=== PATIENT | female | born 1990 | race Caucasian/White ===

== ENCOUNTER 2016-07-25 01:09 | Emergency (ER) | payer BC ==
[2016-07-25 01:15] VITALS: TEMP 97
[2016-07-25] MEDS ORDERED: IBUPROFEN 600 MG TAB PO STA (01:20)
--- NOTE | 2016-07-25 01:50 | XR ---
EXAM: XR RIGHT FOOT, 3 views INDICATION: 25-year-old female with foot pain. COMPARISON: None. FINDINGS: 3 views of the right foot show marked soft tissue swelling over the dorsal and medial midfoot. There is lateral shift of the second through fifth metatarsal heads with respect to the tarsal bones. There is an acute, comminuted fracture of the base of the fourth metatarsal with intra-articular extension. There is irregularity at the second and third metatarsal bases as seen on the oblique images which may relate to nondisplaced fractures, as well. There is widening of the interval between the first and second metatarsal. There is a small type I os navicularis present. Bone mineralization is within normal limits. Remaining osseous structures appear intact. Joint spaces are otherwise maintained. IMPRESSION: 1. Acute, comminuted fracture of the base of the fourth metatarsal with intra-articular extension and possible fractures at the second and third metatarsal bases. 2. Lateral shift of the second through fifth metatarsals relative to the tarsal bones worrisome for a Lisfranc fracture/dislocation injury. Consider noncontrast CT of the foot to further evaluate. 3. Marked soft tissue swelling of the dorsal and medial midfoot.
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
--- NOTE | 2016-07-25 02:35 | CT ---
Exam: CT RIGHT FOOT Without Contrast INDICATION: 25-year-old female with foot pain. COMPARISON: Right foot radiographs 07/25/2016. TECHNIQUE: Multiple axial CT images of the right. Contrast material reformatted coronal and sagittal images are submitted. FINDINGS: There is evidence of a homolateral Lisfranc injury with lateral shift of the first through fifth metatarsals relative to the tarsal bones up to 5 mm. There is associated fracture of the proximal medial base of the second metatarsal with intra-articular extension. There is avulsion fracture of the superomedial distal aspect of the medial cuneiform in the region of the Lisfranc ligament. There is a nondisplaced fracture of the lateral aspect of the middle cuneiform with intra-articular extension. There is a comminuted, minimally displaced fracture involving the lateral cuneiform with intra-articular extension. The third metatarsal is intact. There is an oblique fracture involving the base of the fourth metatarsal with intra-articular extension, as well. Small capsular avulsion of the lateral aspect of the cuboid versus tiny os peroneum. Type I os navicularis is present. Small os trigonum is present. Marked soft tissue swelling dorsal and medial aspect of the mid and forefoot. IMPRESSION: Homolateral Lisfranc fracture dislocation of the tarsometatarsal joints, as above. DOSE:: CTDI is 10.5 mGy and DLP is 321.5 mGy-cm
[2016-07-25 03:16] VITALS: BP 110/68; PULSE 112; RESP 18
== END 2016-07-25 03:17 | disposition home or self-care (01) ==
LOC: EC 01:09
DX: S92.341A Displaced fracture of fourth metatarsal bone, right foot, initial encounter for closed fracture (principal); Y92.89 Other specified places as the place of occurrence of the external cause; S92.321A Displaced fracture of second metatarsal bone, right foot, initial encounter for closed fracture; S92.241A Displaced fracture of medial cuneiform of right foot, initial encounter for closed fracture; S92.224A Nondisplaced fracture of lateral cuneiform of right foot, initial encounter for closed fracture; F17.200 Nicotine dependence, unspecified, uncomplicated; Z88.5 Allergy status to narcotic agent; Z88.2 Allergy status to sulfonamides; W50.0XXA Accidental hit or strike by another person, initial encounter
CPT/HCPCS: 29515; 99284

== ENCOUNTER 2016-08-07 10:58 | Inpatient (IN) | payer SELFPAY ==
[2016-08-04 10:59] VITALS: BMI 32.4
[~2016-08-07 10:58] MED LIST: DEXAMETHASONE SOD PHOSPHATE 10 MG/ML 1 ML VIAL IV ONE; MIDAZOLAM 2 MG/2 ML VIAL IV PRN; ONDANSETRON 4 MG/2 ML VIAL IVP ONE; SCOPOLAMINE 1.5MG/72HR PATCH TRANSDERM ONE; ceFAZolin 2 GM in SODIUM CHLORIDE 0.9% 100 ML IVPB ONE
[2016-08-07] MEDS ORDERED: LIDOCAINE 1% 20 ML VIAL (10MG/ML) FOR IV START INTRADERMA ONE (11:37)
[2016-08-07] MEDS: LACTATED RINGERS 1,000 ML IV SCH ×2 (11:37→20:07)
[2016-08-07] MEDS ORDERED: MIDAZOLAM 2 MG/2 ML VIAL ONE (13:00)
[2016-08-07] MEDS ORDERED: HYDROmorphone (PF) 1 MG/ML ONE (13:00)
[2016-08-07] MEDS ORDERED: fentaNYL (PF) 50 MCG/ML 2 ML AMP ONE (13:00)
[2016-08-07] MEDS ORDERED: PROPOFOL 10 MG/ML 20 ML VIAL IV ONE (13:00)
[2016-08-07] MEDS ORDERED: SUCCINYLCHOLINE CHLORIDE 100 MG/5 ML SYR IV ONE (13:00)
[2016-08-07] MEDS ORDERED: LIDOCAINE 1% INJ 10MG/ML (20 ML MDV) ONE (13:00)
[2016-08-07] MEDS ORDERED: LACTATED RINGERS 1,000 ML IV ONE ×2 (13:30→16:29)
[2016-08-07] MEDS ORDERED: ceFAZolin 1,000 MG in SODIUM CHLORIDE 0.9% 1,000 ML IRRIGATION ONE (13:47)
--- NOTE | 2016-08-07 16:30 | FL ---
FLUOROSCOPY 2 minutes and 50 seconds of fluoroscopy time were utilized during internal fixation of the right ankl e. 11 images document the procedure.
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
[2016-08-07] MEDS ORDERED: HYDROcodone/APAP 5-325MG 1 EACH TAB PO PRN (17:18)
[2016-08-07] MEDS ORDERED: ONDANSETRON 4 MG/2 ML VIAL IVP PRN (17:18)
[2016-08-07] MEDS ORDERED: HYDROmorphone 1 MG/ML 1 ML SYRINGE IVP PRN (17:18)
[2016-08-07] MEDS ORDERED: MAGNESIUM HYDROXIDE 2,400 MG/10 ML CUP PO PRN (17:18)
[2016-08-07] MEDS ORDERED: NALOXONE 0.4 MG/ML 1 ML VIAL IV PRN (17:18)
[2016-08-07] MEDS: HYDROmorphone 1 MG/ML 1 ML SYRINGE IVP PRN ×4 (17:45→22:02)
[2016-08-07] MEDS ORDERED: MIDAZOLAM 2 MG/2 ML VIAL IVP ONE ×2 (18:30→18:35)
[2016-08-07] MEDS ORDERED: MEPERIDINE 50 MG/ML SYRINGE IVP ONE (18:45)
[2016-08-07] MEDS: SENNOSIDES-DOCUSATE SODIUM 1 EACH TAB PO SCH (20:00)
[2016-08-07] MEDS: ceFAZolin 2 GM in SODIUM CHLORIDE 0.9% 100 ML IVPB SCH (20:06)
[2016-08-07] MEDS ORDERED: HYDROcodone/APAP 7.5-325MG 1 EACH TAB PO PRN (20:13)
--- NOTE | 2016-08-07 20:45 | P.ONQ ---
Anesthesiology Proc Note - PNB - Peripheral Nerve Block Performed Right Popliteal Single Time Out Performed: Yes Procedure Start Time: 18:00 Procedure Stop Time: 18:10 Indication: Acute Post-Operative Pain, Analgesia, Requested by physician Sedation Type: Awake Preparation: Sterile Prep Position: Supine Needle Size: 100mm (4") Needle Gauge: 20 Technique: Ultrasound Injectate: 0.5% Ropivacaine (see comment for volume) (15 ml ropivacaine 2 % plus lidocaine 2% with epi 1/200k 15 ml) Adjunct: Epinephrine (see comment for dilution ratio) Blood Aspirated: No Resistance on Injection: Normal Events: Uneventful and Well Tolerated
[2016-08-07] MEDS: DIAZEPAM 5 MG TAB PO PRN (22:01)
[2016-08-08] MEDS: HYDROmorphone 1 MG/ML 1 ML SYRINGE IVP PRN ×5 (00:17→14:21)
[2016-08-08] MEDS: HYDROcodone/APAP 10-325MG 1 EACH TAB PO PRN ×2 (01:31→06:35)
[2016-08-08] MEDS: hydrOXYzine PAMOATE 25 MG CAP PO PRN ×3 (01:31→21:41)
[2016-08-08] MEDS: ONDANSETRON 4 MG/2 ML VIAL IVP PRN ×3 (01:41→19:45)
[2016-08-08] MEDS: ceFAZolin 2 GM in SODIUM CHLORIDE 0.9% 100 ML IVPB SCH (04:17)
[2016-08-08] MEDS: ENOXAPARIN 40 MG/0.4 ML SYRINGE SQ SCH (07:07)
[2016-08-08] MEDS ORDERED: oxyCODONE-APAP 5-325MG 1 EACH TAB PO PRN (08:04)
[2016-08-08] MEDS ORDERED: KETOROLAC 30 MG/ML 1 ML VIAL IVP STA (08:05)
--- NOTE | 2016-08-08 10:39 | P.PN ---
Subjective The patient was seen at bedside this morning his complaining of severe pain in her right foot. She says she had a block after surgery which does not seem to be providing much relief. She has no other complaints other than right foot pain. Objective - Vital Signs Vital signs: Vital Signs Temp 98.1 F 08/08/16 02:13 Pulse 99 08/08/16 02:13 Resp 16 08/08/16 02:13 BP 126/68 08/08/16 02:13 Pulse Ox 93 L 08/08/16 07:38 Intake & Output 08/07/16 08/08/16 08/08/16 18:59 06:59 18:59 Intake Total 2201 1090 480 Output Total 450 Balance 1751 1090 480 Weight 88.451 kg Intake: IV 2201 500 Oral 590 480 Output: Urine 400 Estimated Blood Loss 50 Other: Voiding Method Bedside Commode # Voids 1 - Exam On examination the patient is in moderate distress secondary to pain. A focused exam of the right leg shows a clean-appearing bulky Pérez splint over her right lower leg. There is no saturated blood or drainage. The tips of her toes are warm and well perfused. Sensation is intact to light touch in her toes. She has no pain with passive range motion of her toes. Assessment and Plan (1) Lisfranc fracture Status: Acute Plan: Postop day #1 status post ORIF right Lisfranc injury 1. Strict nonweightbearing left lower extremity. Ice and elevate. 2. DVT prophylaxis with Lovenox while in-house discharge home on aspirin. 3. Added Percocet and a single dose of Toradol to help get her pain under better control. 4. Patient can discharge home when she is comfortable. If she is comfortable later this afternoon she can go home and if she needs to stay until tomorrow that is fine. Anticipate due to her pain she will likely need to stay until tomorrow.
[2016-08-08] MEDS ORDERED: HYDROmorphone 1 MG/ML 1 ML SYRINGE IVP PRN (10:50)
[2016-08-08] MEDS: DIAZEPAM 5 MG TAB PO PRN (15:21)
[2016-08-08] MEDS: MULTIVITAMINS, THERA 1 EACH TAB PO SCH (15:21)
[2016-08-08] MEDS ORDERED: NALOXONE 0.4 MG/ML 1 ML VIAL IV PRN (16:27)
[2016-08-08] MEDS ORDERED: HYDROmorphone PCA 5 MG/25 ML SYRINGE IV ONE (16:36)
[2016-08-08] MEDS: HYDROmorphone PCA 5 MG/25 ML SYRINGE IV PRN ×3 (17:42→21:55)
[2016-08-08] MEDS: KETOROLAC 30 MG/ML 1 ML VIAL IVP SCH (18:47)
[2016-08-08] MEDS: SENNOSIDES-DOCUSATE SODIUM 1 EACH TAB PO SCH (21:40)
[2016-08-08] MEDS: oxyCODONE-APAP 5-325MG 1 EACH TAB PO PRN (21:41)
[2016-08-09] MEDS: ONDANSETRON 4 MG/2 ML VIAL IVP PRN ×3 (01:21→21:09)
[2016-08-09] MEDS: oxyCODONE-APAP 5-325MG 1 EACH TAB PO PRN ×2 (01:21→06:57)
[2016-08-09] MEDS: KETOROLAC 30 MG/ML 1 ML VIAL IVP SCH ×3 (01:25→17:51)
[2016-08-09] MEDS: HYDROmorphone PCA 5 MG/25 ML SYRINGE IV PRN ×6 (02:21→22:59)
[2016-08-09] MEDS: DIAZEPAM 5 MG TAB PO PRN ×2 (02:25→17:51)
[2016-08-09] MEDS: ENOXAPARIN 40 MG/0.4 ML SYRINGE SQ SCH (06:57)
[2016-08-09] MEDS ORDERED: LIDOCAINE 2%-EPI 1:100,000 20 ML VIAL ONE (10:40)
[2016-08-09] MEDS ORDERED: ROPIVACAINE 5 MG/ML 30 ML VIAL ONE (10:40)
[2016-08-09] MEDS ORDERED: LIDOCAINE 1% INJ 10MG/ML (20 ML MDV) IM ONE (10:44)
[2016-08-09] MEDS ORDERED: BUPIVACAIN-EPI 0.25%-1:200,000 30 ML VIAL INTRAARTIC ONE (10:44)
--- NOTE | 2016-08-09 11:27 | P.ONQ ---
Anesthesiology Proc Note - PNB - Peripheral Nerve Block Performed Right Popliteal Single Time Out Performed: Yes Procedure Start Time: 10:50 Procedure Stop Time: 11:00 Indication: Acute Post-Operative Pain, Dx/Pain Location Sedation Type: Awake Preparation: Sterile Prep Position: Supine Catheter Depth at Skin (cm): 3 Catheter: None Needle Types: Facet Needle Size: 100mm (4") Needle Gauge: 20 Technique: Ultrasound Injectate: Other (see comment) (lidocaine 1% 10 ml +Bupivacaine 0,25% 15 ml) Adjunct: Epinephrine (see comment for dilution ratio) Blood Aspirated: No Pain Paresthesia on Injection Noted: No Resistance on Injection: Normal Events: Uneventful and Well Tolerated
--- NOTE | 2016-08-09 11:31 | P.ONQ ---
Anesthesiology Proc Note - PNB - Peripheral Nerve Block Performed Right Adductor Canal Single Time Out Performed: Yes Procedure Start Time: 10:45 Procedure Stop Time: 10:50 Indication: Acute Post-Operative Pain Sedation Type: Awake Preparation: Sterile Prep Position: Supine Catheter: None Needle Types: Facet Needle Size: 100mm (4") Needle Gauge: 20 Technique: Ultrasound Injectate: Other (see comment) (Lidocaine 1% with epi 1/200k 5 ML + bupivacaine 0.25% with epi 1/200 k 15 mL)
--- NOTE | 2016-08-09 11:36 | P.PN ---
Subjective Patient continues to complain of severe and excruciating pain in her foot. Objective - Vital Signs Vital signs: Vital Signs Temp 99.2 F 08/09/16 11:23 Pulse 95 08/09/16 11:23 Resp 18 08/09/16 11:23 BP 119/75 08/09/16 11:23 Pulse Ox 97 08/09/16 11:23 Intake & Output 08/08/16 08/09/16 08/09/16 18:59 06:59 18:59 Intake Total 480 1420 Balance 480 1420 Intake: Oral 480 1420 Other: Voiding Method Bedside Commode Bedside Commode # Voids 1 - Exam On exam the patient has a clean-appearing bulky Pérez splint. The front of the splint was taken down to allow examination of the right foot. After the splint was taken down on examination of the foot there are healing dorsomedial and dorsolateral incisions. The flap of skin between the 2 incisions as well perfused with brisk capillary refill. There is no drainage or sign of infection. The calf is soft. There is mild swelling throughout the foot, but the foot is soft and compressible. There is no pain with passive range of motion of the toes. Sensation is intact to light touch at the tip of the toes. The toes are warm and well perfused with brisk capillary refill. Assessment and Plan (1) Lisfranc fracture Status: Acute Plan: Postoperative day #2 status post open reduction internal fixation of right Lisfranc fracture dislocation 1. Continue strict nonweightbearing and elevation of right leg 2. Leave splint open overnight. 3. Continue HOUSING ASSISTANT, Percocet, and Toradol 4. A repeat attempt at popliteal and abductor block was performed by anesthesia this morning to hopefully help get pain under control 5. We'll plan on discharge home tomorrow if pain is better controlled
[2016-08-09] MEDS: hydrOXYzine PAMOATE 25 MG CAP PO PRN (12:53)
[2016-08-09] MEDS: MULTIVITAMINS, THERA 1 EACH TAB PO SCH (12:57)
[2016-08-09] MEDS: oxyCODONE-APAP 10-325MG 1 EACH TAB PO PRN ×2 (15:21→21:09)
[2016-08-09] MEDS: SENNOSIDES-DOCUSATE SODIUM 1 EACH TAB PO SCH (21:09)
[2016-08-10] MEDS: oxyCODONE-APAP 10-325MG 1 EACH TAB PO PRN ×4 (01:11→16:10)
[2016-08-10] MEDS: KETOROLAC 30 MG/ML 1 ML VIAL IVP SCH ×2 (02:00→09:05)
[2016-08-10 02:22] VITALS: RESP 16
[2016-08-10] MEDS: ONDANSETRON 4 MG/2 ML VIAL IVP PRN ×2 (02:51→08:14)
[2016-08-10] MEDS: HYDROmorphone PCA 5 MG/25 ML SYRINGE IV PRN (03:59)
[2016-08-10] MEDS: ENOXAPARIN 40 MG/0.4 ML SYRINGE SQ SCH (07:39)
[2016-08-10] MEDS: MULTIVITAMINS, THERA 1 EACH TAB PO SCH (07:40)
[2016-08-10 08:10] LABS: Basophils % (A) 0 %; CH 30.7; CHCM 32.7; Eosinophils # (A) 0.1 k/uL (0-0.7); Eosinophils % (A) 1 %; HCT 34.9 % (34.0-46.0); HDW 2.49; HGB 11.4 gm/dL (11.4-16.0); Luc # (Auto) 0.21; Luc % (Auto) 3; Lymphocytes # (A) 2.2 k/uL (1.0-4.8); Lymphocytes % (A) 26 %; MCH 30.8 pg (25.0-35.0); MCHC 32.6 g/dL (31.0-37.0); MCV 94.3 fL (80.0-100.0); Mean Platelet Volume 6.4; Monocytes # (A) 0.4 k/uL (0-1.0); Monocytes % (A) 5 %; Neutrophils # (A) 5.4 k/uL (1.3-7.7); Neutrophils % (A) 65 %; RDW 12.5 % (11.5-15.5); WBC 8.2 k/uL (3.8-10.6)
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
--- NOTE | 2016-08-10 10:13 | XR ---
EXAMINATION TYPE: XR chest 1V portable DATE OF EXAM: 08/10/2016 9:49 AM CLINICAL HISTORY: Difficulty breathing progress study. Cough and fever per order. TECHNIQUE: Single AP portable upright view of the chest is obtained. COMPARISON: Chest x-ray from June 27, 2005 FINDINGS: Diminished inspiration is seen on current study. There is no focal air space opacity, pleur al effusion, or pneumothorax seen. The cardiac silhouette size is upper limits of normal. The osse ous structures are intact. IMPRESSION: No suspicious acute pulmonary process.
[2016-08-10] MEDS ORDERED: RX INFO: IV CONTRAST WAS GIVEN 1 EACH MISC MISCELLANE PRN (11:48)
[2016-08-10 16:40] VITALS: BP 111/71; PULSE 84; TEMP 97.1
--- NOTE | 2016-08-10 17:07 | P.PN ---
Subjective The patient is significantly improved this afternoon and the pain in her left foot is under much better control. This morning the patient had some chest discomfort and a headache which she attributes to being on narcotic pain medication. Internal medicine was consult did and requested a workup of her chest pain which the patient refused. At the time of my evaluation she denies chest pain or headache. She has no other complaints. Objective - Vital Signs Vital signs: Vital Signs Temp 97.1 F L 08/10/16 15:00 Pulse 84 08/10/16 15:00 Resp 16 08/10/16 15:00 BP 111/71 08/10/16 15:00 Pulse Ox 98 08/10/16 15:00 Intake & Output 08/09/16 08/10/16 08/10/16 18:59 06:59 18:59 Intake Total 120 810 Output Total 600 Balance 120 810 -600 Intake: Oral 120 810 Output: Urine 600 Other: Voiding Method Bedside Commode Bedside Commode # Voids 1 4 1 - Exam On exam the patient is in no apparent distress and is alert and oriented. On examination of the patient's right leg she has a open bulky Pérez type splint. The splint was completely taken down and the foot was inspected. There is diffuse swelling throughout the foot. There are healing incisions over the dorsomedial and dorsolateral midfoot. There is a K wire in the lateral aspect of her foot. The foot is warm and well perfused with brisk capillary refill. There is no pain with passive range motion of the toes. - Labs CBC & Chem 7: 08/10/16 07:25 Labs: Abnormal Lab Results - Last 24 Hours (Table) 08/10/16 Range/Units 07:25 RBC 3.70 L (3.80-5.40) m/uL Assessment and Plan (1) Lisfranc fracture Status: Acute Plan: Postoperative day #3 status post open reduction internal fixation of right Lisfranc injury 1. Continue strict nonweightbearing right lower extremity 2. Ice and elevate right leg 3. A new bulky Pérez type splint was applied 4. Patient will discharge home with Percocet 10/325 for pain. I would also like her to start Bactrim double strength twice a day due to her dressing think changed and exposed the hospital environment. The patient states that despite having a sulfa ALLERGY she has tolerated Bactrim in the past. 5. The patient currently has no complaint of chest pain or headache. 6. Patient is going to discharge home this afternoon
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
== END 2016-08-10 17:57 | disposition home or self-care (01) | DRG 505 ==
LOC: OR 10:58 → 3SUR 16:35 → OR 08-08 01:16 → 3SUR 08-08 01:16 → OBSVTOIN 08-09 14:31
PROVIDERS: ADMIT Hospitalist; ATTEND Hospitalist
PROC: 0QSN04Z Reposition Right Metatarsal with Internal Fixation Device, Open Approach (ICD-10-PCS; principal; 2016-08-09 10:56)
DX: S92.311A Displaced fracture of first metatarsal bone, right foot, initial encounter for closed fracture (principal); M54.2 Cervicalgia; Y04.2XXA Assault by strike against or bumped into by another person, initial encounter; S62.310A Displaced fracture of base of second metacarpal bone, right hand, initial encounter for closed fracture; Z72.0 Tobacco use; Z79.82 Long term (current) use of aspirin; Z79.899 Other long term (current) drug therapy; Z88.5 Allergy status to narcotic agent; Z88.2 Allergy status to sulfonamides; R50.9 Fever, unspecified
CPT/HCPCS: 64447; 71010; 85025; 87502; 94760; 96375; 96376

== ENCOUNTER → 2019-07-21 | Outpatient (CLI) | payer BC ==
--- NOTE | 2019-07-21 10:28 | US ---
EXAMINATION TYPE: US transvaginal DATE OF EXAM: 07/21/2019 COMPARISON: NONE CLINICAL HISTORY: N93.8. Irregular bleeding. IUD x 5 years. TECHNIQUE: Transvaginal (TV). Date of LMP: 06/28/2019 EXAM MEASUREMENTS: Uterus: 8.7 x 4.3 x 4.2 cm Endometrial Stripe: 0.6 cm Right Ovary: 2.8 x 2.1 x 2.0 cm Left Ovary: 2.7 x 2.0 x 1.5 cm 1. Uterus: Anteverted 2. Endometrium: wnl, IUD visualized 3. Right Ovary: follicles seen 4. Left Ovary: follicles seen 5. Bilateral Adnexa: wnl 6. Posterior cul-de-sac: no free fluid Cervix- IUD strings visualized IMPRESSION: Appropriately based central intrauterine device. Physiologic follicles of the ovaries. No endometrial thickening.
== END | disposition home or self-care (01) ==
LOC: RADUSWWP 09:49
PROVIDERS: ATTEND Obstetrics & Gynecology
DX: N93.8 Other specified abnormal uterine and vaginal bleeding (principal)
CPT/HCPCS: 76830

== ENCOUNTER 2021-05-05 11:14 | Emergency (ER) | payer SELFPAY ==
[2021-05-05 11:33] VITALS: BP 135/73; PULSE 84; RESP 18; TEMP 97.7
[2021-05-05] MEDS ORDERED: FAMOTIDINE 20 MG TAB PO STA (11:41)
[2021-05-05] MEDS ORDERED: DEXAMETHASONE SOD PHOSPHATE 10 MG/ML 1 ML VIAL IM STA (11:41)
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
== END 2021-05-05 12:14 | disposition home or self-care (01) ==
LOC: EC 11:14
DX: L50.9 Urticaria, unspecified (principal); Z88.5 Allergy status to narcotic agent; Z88.2 Allergy status to sulfonamides
CPT/HCPCS: 99283; 96372; J1100

== ENCOUNTER → 2023-12-31 | Outpatient (CLI) | payer BC | END | disposition home or self-care (01) | LOC: LABPRL 12:35 | PROVIDERS: ATTEND Obstetrics & Gynecology | DX: Z36.85 Encounter for antenatal screening for Streptococcus B (principal) | CPT/HCPCS: 87081 ==

== ENCOUNTER 2024-01-06 07:45 | Inpatient (IN) | payer BC ==
[2024-01-06] MEDS ORDERED: PHYTONADIONE 1 MG/0.5 ML SYRINGE ONE (08:46)
[2024-01-06] MEDS ORDERED: ERYTHROMYCIN 5 MG/GM OPHTH OINT 1 GM TUBE ONE (08:47)
[2024-01-06] MEDS ORDERED: CITRIC ACID-SODIUM CITRATE 15 ML CUP ONE (08:47)
[2024-01-06] MEDS ORDERED: PHENYLEPHRINE 10 MG/ML VIAL ONE (09:02)
[2024-01-06] MEDS ORDERED: DEXAMETHASONE SOD PHOSPHATE 4 MG/ML 1 ML VIAL ONE (09:02)
[2024-01-06] MEDS ORDERED: KETOROLAC 30 MG/ML 1 ML VIAL ONE (09:02)
[2024-01-06] MEDS ORDERED: ONDANSETRON 4 MG/2 ML VIAL ONE (09:02)
[2024-01-06] MEDS ORDERED: diphenhydrAMINE 50 MG/ML 1 ML VIAL ONE (09:02)
[2024-01-06] MEDS ORDERED: OXYTOCIN 30 UNITS/500 ML NS BAG IV ONE (09:02)
[2024-01-06] MEDS ORDERED: MORPHINE SULFATE (PF) 0.3 MG/0.3 ML SYR ONE (09:02)
[2024-01-06] MEDS ORDERED: NALBUPHINE 10 MG/ML (10 ML MDV) ONE (09:47)
[2024-01-06] MEDS ORDERED: ACETAMINOPHEN TAB 500 MG TAB ONE ×2 (15:01→20:14)
[2024-01-06] MEDS ORDERED: IBUPROFEN 600 MG TAB PO ONE (17:56)
[2024-01-06] MEDS ORDERED: SENNOSIDES-DOCUSATE SODIUM 1 EACH TAB PO ONE (20:13)
[2024-01-07] MEDS ORDERED: IBUPROFEN 600 MG TAB PO ONE ×4 (00:15→19:48)
[2024-01-07] MEDS ORDERED: ACETAMINOPHEN TAB 500 MG TAB ONE ×4 (03:22→16:32)
[2024-01-07] MEDS ORDERED: SENNOSIDES-DOCUSATE SODIUM 1 EACH TAB PO ONE ×2 (09:32→19:48)
[2024-01-07] MEDS ORDERED: SUCROSE 24% 2 ML AMP ONE (10:17)
[2024-01-08] MEDS ORDERED: ACETAMINOPHEN TAB 500 MG TAB ONE ×3 (00:07→11:40)
[2024-01-08] MEDS ORDERED: IBUPROFEN 600 MG TAB PO ONE ×2 (02:24→08:14)
[2024-01-08] MEDS ORDERED: SENNOSIDES-DOCUSATE SODIUM 1 EACH TAB PO ONE (08:13)
== END 2024-01-08 11:55 | disposition home or self-care (01) | DRG 787 ==
LOC: 4FBP 07:45
PROVIDERS: ADMIT Obstetrics & Gynecology; ATTEND Obstetrics & Gynecology
PROC: 3E0234Z Introduction of Serum, Toxoid and Vaccine into Muscle, Percutaneous Approach (ICD-10-PCS; 2024-01-06)
PROC: 10D00Z1 Extraction of Products of Conception, Low, Open Approach (ICD-10-PCS; principal; 2024-01-06 09:00)
DX: O34.211 Maternal care for low transverse scar from previous cesarean delivery (principal); O36.0930 Maternal care for other rhesus isoimmunization, third trimester, not applicable or unspecified; O26.893 Other specified pregnancy related conditions, third trimester; Z67.11 Type A blood, Rh negative; Z3A.36 36 weeks gestation of pregnancy; Z37.0 Single live birth; O99.334 Smoking (tobacco) complicating childbirth; Z88.5 Allergy status to narcotic agent; Z88.2 Allergy status to sulfonamides; Z79.82 Long term (current) use of aspirin
CPT/HCPCS: 59025; 84112; 85461; 86850; 86900; 86901; 99213